=== PATIENT | male | born 1980 | race Caucasian/White ===

== ENCOUNTER 2020-04-20 11:43 | Inpatient (IN) ==
[2020-04-20] MEDS ORDERED: Morphine Sulfate 2 MG/ML SYRINGE IVP ONE (14:01)
[2020-04-20] MEDS ORDERED: Ondansetron 4 MG/2 ML VIAL IVP PRN (14:04)
[2020-04-20] MEDS ORDERED: Naloxone 0.4 MG/ML INJ IVP PRN (14:04)
[2020-04-20] MEDS ORDERED: *HR* OxyCODONE Oral Soln 5 MG/5 ML UD.LIQ GTUBE PRN (14:07)
[2020-04-20] MEDS ORDERED: 0.9 % Sodium Chloride 1,000 ML IVC ONE (14:08)
[2020-04-20 15:15] LABS: Basophils # 0.1 K/mcL (0.0-0.2); Basophils % 0.3 %; Eosinophils # 0.3 K/mcL (0.0-0.6); Eosinophils % 1.7 %; Hematocrit 31.6 % (37.5-50.1); Hemoglobin 9.2 g/dL (12.9-16.9); Immature Granulocytes % 0.3 % (0-4); Lymphocytes # 1.9 K/mcL (0.6-4.6); Lymphocytes % 10.8 %; Mean Corpuscular HGB Conc 29.1 g/dL (31.6-35.5); Mean Corpuscular Hemoglobin 26.4 pg (28.0-33.3); Mean Corpuscular Volume 90.5 fL (83.0-100.0); Monocytes # 1.4 K/mcL (0.0-1.3); Monocytes % 7.8 %; Neutrophils # 13.8 K/mcL (1.6-8.9); Platelet Count 260 K/mcL (140-400); Red Blood Count 3.49 M/mcL (4.19-5.50); Red Cell Distribution Width 15.2 % (11.5-14.5); Segmented Neutrophils % 79.1 %; White Blood Count 17.4 K/mcL (4.3-11.1)
[2020-04-20 15:27] LABS: Bilirubin,Urine Negative (Negative); Blood,Urine Moderate (Negative); Clarity,Urine Turbid (Clear); Color,Urine Light-Yellow (Yellow); Glucose,Urine (UA) Normal (Normal); Ketones,Urine Negative (Negative); Leukocyte Esterase,Urine Large (Negative); Nitrite,Urine Negative (Negative); Protein,Urine 100 mg/dL (Neg-Trace); RBC,Urine TNTC per hpf (0-3); Renal Epithelial Cells,Urine Many per hpf (None-Few); Specific Gravity,Urine 1.013 (1.010-1.025); Squamous Epithelial Cell,Urine Few per hpf (None-Few); Urobilinogen,Urine Normal (Normal); WBC,Urine TNTC per hpf (0-3)
[2020-04-20 15:30] LABS: Calcium 9.2 mg/dL (8.6-10.3); Potassium 5.2 mEq/L (3.5-5.1)
[2020-04-20] MEDS: Morphine Sulfate 2 MG/ML SYRINGE IVP PRN ×2 (17:31→22:18)
[2020-04-20] MEDS: Acetaminophen IV 1,000 MG/100 ML INFUS..BTL IVPB SCH ×2 (18:12→23:59)
[2020-04-21] MEDS: Morphine Sulfate 2 MG/ML SYRINGE IVP PRN ×2 (02:54→07:19)
[2020-04-21] MEDS: Acetaminophen IV 1,000 MG/100 ML INFUS..BTL IVPB SCH (05:55)
[2020-04-21 06:33] LABS: Hematocrit 31.8 % (37.5-50.1); Hemoglobin 9.4 g/dL (12.9-16.9); Mean Corpuscular HGB Conc 29.6 g/dL (31.6-35.5); Mean Corpuscular Hemoglobin 26.9 pg (28.0-33.3); Mean Corpuscular Volume 91.1 fL (83.0-100.0); Mean Platelet Volume 11.9 fL (9.4-12.4); Platelet Count 256 K/mcL (140-400); Red Blood Count 3.49 M/mcL (4.19-5.50); Red Cell Distribution Width 15.3 % (11.5-14.5); White Blood Count 17.6 K/mcL (4.3-11.1)
[2020-04-21 06:45] LABS: INR 1.2; Prothrombin Time 13.7 Seconds (9.4-12.1)
[2020-04-21 06:54] LABS: Calcium 9.3 mg/dL (8.6-10.3); Phosphorous 5.9 mg/dL (2.7-4.5); Potassium 5.6 mEq/L (3.5-5.1)
[2020-04-21] MEDS: cefTRIAXone 1,000 MG in Water for inj. (sterile) 10 ML IVP SCH (07:19)
[2020-04-21] MEDS ORDERED: Lidocaine/EPI 1:100k 1% 50 ML VIAL ONE (07:42)
[2020-04-21] MEDS ORDERED: 0.9 % Sodium Chloride 500 ML ONE ×2 (07:42→07:44)
[2020-04-21] MEDS ORDERED: *HR* Dextrose 25% in Water (Syg) 10 ML SYRINGE IVP ONE (07:51)
[2020-04-21] MEDS ORDERED: *HR* Dextrose 50 % in Water (Vial) 50 ML VIAL IVP ONE (08:01)
[2020-04-21] MEDS ORDERED: *HR* FentaNYL (PF) 100 MCG/2 ML VIAL IVP ONE (08:12)
[2020-04-21] MEDS ORDERED: *HR* Midazolam HCl 2 MG/2 ML VIAL IVP ONE (08:12)
[2020-04-21] MEDS ORDERED: Ampicillin/Sulbactam 1,500 MG in 0.9 % Sodium Chloride Mini Bag 100 ML IVPB ONE (08:13)
[2020-04-21] MEDS ORDERED: *HR* Midazolam HCl 2 MG/2 ML VIAL ONE (08:19)
[2020-04-21] MEDS ORDERED: *HR* FentaNYL (PF) 100 MCG/2 ML VIAL ONE (08:19)
[2020-04-21] MEDS ORDERED: Isovue-300 50ML VIAL IVP ONE (08:48)
[2020-04-21] MEDS ORDERED: 0.9 % Sodium Chloride 1,000 ML IVC SCH (09:30)
[2020-04-21] MEDS: Nystatin SUSP 5 ML UD.LIQ PO SCH ×4 (10:09→20:44)
[2020-04-21] MEDS ORDERED: CEFDINIR GTUBE SCH (12:30)
[2020-04-21] MEDS: Chlorhexidine Rinse 15 ML MOUTHWASH PO SCH ×2 (13:30→20:44)
[2020-04-21] MEDS: *HR* OxyCODONE Oral Soln 5 MG/5 ML UD.LIQ GTUBE PRN ×4 (13:42→22:46)
[2020-04-21] MEDS: Fluticasone Propionate Nasal 50 MCG/SPRAY BOTTLE NS SCH (13:44)
[2020-04-21 14:26] LABS: Adenovirus Not Detected (Not Detect); Bordetella Pertussis Not Detected (Not Detect); Chlamydophila pneumoniae Not Detected (Not Detect); Coronavirus 229E Not Detected (Not Detect); Coronavirus HKU1 Not Detected (Not Detect); Coronavirus NL63 Not Detected (Not Detect); Coronavirus OC43 Not Detected (Not Detect); Human Metapneumovirus Not Detected (Not Detect); Human Rhinovirus/Enterovirus Not Detected (Not Detect); Influenza A Subtype 2009 H1 Not Detected (Not Detect); Influenza B Not Detected (Not Detect); Mycoplasma pneumoniae Not Detected (Not Detect); Parainfluenza Virus 1 Not Detected (Not Detect); Parainfluenza Virus 2 Not Detected (Not Detect); Parainfluenza Virus 3 Not Detected (Not Detect); Parainfluenza Virus 4 Not Detected (Not Detect); Respiratory Syncytial Virus Not Detected (Not Detect)
[2020-04-21] MEDS ORDERED: Albuterol 2.5 MG/3 ML NEBULIZER IH PRN (15:49)
[2020-04-21 16:50] LABS: Calcium 9.4 mg/dL (8.6-10.3); Potassium 4.3 mEq/L (3.5-5.1)
[2020-04-21] MEDS: traZODone 50 MG TABLET GTUBE SCH (20:43)
[2020-04-21] MEDS: GuaiFENesin Liq 200 MG/10 ML UDC GTUBE PRN (20:44)
[2020-04-22] MEDS: *HR* OxyCODONE Oral Soln 5 MG/5 ML UD.LIQ GTUBE PRN ×5 (03:31→22:05)
[2020-04-22 07:14] LABS: Basophils # 0.1 K/mcL (0.0-0.2); Basophils % 0.4 %; Eosinophils # 0.1 K/mcL (0.0-0.6); Eosinophils % 0.6 %; Hemoglobin 10.3 g/dL (12.9-16.9); Immature Granulocytes % 0.3 % (0-4); Lymphocytes # 1.7 K/mcL (0.6-4.6); Lymphocytes % 12.9 %; Mean Corpuscular HGB Conc 29.4 g/dL (31.6-35.5); Mean Corpuscular Hemoglobin 26.8 pg (28.0-33.3); Mean Corpuscular Volume 91.1 fL (83.0-100.0); Mean Platelet Volume 12.2 fL (9.4-12.4); Monocytes # 0.9 K/mcL (0.0-1.3); Monocytes % 6.6 %; Neutrophils # 10.4 K/mcL (1.6-8.9); Platelet Count 274 K/mcL (140-400); Red Blood Count 3.84 M/mcL (4.19-5.50); Red Cell Distribution Width 15.5 % (11.5-14.5); Segmented Neutrophils % 79.2 %; White Blood Count 13.1 K/mcL (4.3-11.1)
[2020-04-22] MEDS ORDERED: D5% in Water 1,000 ML IVC SCH ×2 (09:00→15:38)
[2020-04-22] MEDS: Nystatin SUSP 5 ML UD.LIQ PO SCH ×4 (09:28→22:06)
[2020-04-22] MEDS: Chlorhexidine Rinse 15 ML MOUTHWASH PO SCH ×2 (09:28→22:05)
[2020-04-22] MEDS: polyethylene glycoL 3350 17 GM POWD.PACK GTUBE SCH (09:28)
[2020-04-22] MEDS: GuaiFENesin Liq 200 MG/10 ML UDC GTUBE PRN ×3 (09:28→22:24)
[2020-04-22] MEDS: cefTRIAXone 1,000 MG in Water for inj. (sterile) 10 ML IVP SCH (09:29)
[2020-04-22] MEDS: Fluticasone Propionate Nasal 50 MCG/SPRAY BOTTLE NS SCH (09:33)
[2020-04-22 09:46] LABS: Calcium 10.2 mg/dL (8.6-10.3); Potassium 4.2 mEq/L (3.5-5.1)
[2020-04-22] MEDS: FluocinoLONE Acet 0.025% CRM 15 GM TUBE TP SCH (12:29)
[2020-04-22] MEDS: Metoclopramide 10 MG/10 ML UD.LIQ GTUBE SCH (16:15)
[2020-04-22] MEDS: traZODone 50 MG TABLET GTUBE SCH (22:06)
[2020-04-23] MEDS: Metoclopramide 10 MG/10 ML UD.LIQ GTUBE SCH ×5 (00:35→23:25)
[2020-04-23 04:16] LABS: Basophils # 0.1 K/mcL (0.0-0.2); Basophils % 0.4 %; Eosinophils # 0.5 K/mcL (0.0-0.6); Eosinophils % 2.6 %; Hematocrit 32.7 % (37.5-50.1); Hemoglobin 9.8 g/dL (12.9-16.9); Immature Granulocytes % 0.3 % (0-4); Lymphocytes # 2.9 K/mcL (0.6-4.6); Lymphocytes % 15.6 %; Mean Corpuscular Hemoglobin 26.3 pg (28.0-33.3); Mean Corpuscular Volume 87.9 fL (83.0-100.0); Monocytes # 1.5 K/mcL (0.0-1.3); Neutrophils # 13.8 K/mcL (1.6-8.9); Platelet Count 246 K/mcL (140-400); Red Blood Count 3.72 M/mcL (4.19-5.50); Red Cell Distribution Width 15.2 % (11.5-14.5); Segmented Neutrophils % 73.1 %; White Blood Count 18.8 K/mcL (4.3-11.1)
[2020-04-23 04:30] LABS: BUN/Creatinine Ratio 34 (6-26); Blood Urea Nitrogen 32 mg/dL (6-20); Calcium 8.9 mg/dL (8.6-10.3); Carbon Dioxide 28 mEq/L (23-29); Chloride 109 mEq/L (98-107); Glucose 112 mg/dL (70-105); Osmolality,Calculated 312 (280-300); Potassium 3.2 mEq/L (3.5-5.1); Sodium 147 mEq/L (136-145); eGFR For African Americans > 60 (> 60); eGFR For Non-African Americans > 60 (> 60)
[2020-04-23] MEDS: GuaiFENesin Liq 200 MG/10 ML UDC GTUBE PRN (06:05)
[2020-04-23] MEDS: 0.9 % Sodium Chloride 1,000 ML IVC SCH ×2 (06:06→18:28)
[2020-04-23] MEDS: cefTRIAXone 2,000 MG in Water for inj. (sterile) 20 ML IVP SCH (09:05)
[2020-04-23] MEDS: Chlorhexidine Rinse 15 ML MOUTHWASH PO SCH ×2 (09:08→22:19)
[2020-04-23] MEDS: Potassium Chloride Elixir 20 MEQ/15 ML UDC GTUBE SCH ×2 (09:08→22:21)
[2020-04-23] MEDS: polyethylene glycoL 3350 17 GM POWD.PACK GTUBE SCH (09:09)
[2020-04-23] MEDS: Fluticasone Propionate Nasal 50 MCG/SPRAY BOTTLE NS SCH (09:10)
[2020-04-23] MEDS: FluocinoLONE Acet 0.025% CRM 15 GM TUBE TP SCH (09:11)
[2020-04-23] MEDS: Nystatin SUSP 5 ML UD.LIQ PO SCH ×4 (09:12→22:19)
[2020-04-23] MEDS: traZODone 50 MG TABLET GTUBE SCH (22:20)
[2020-04-24 02:44] LABS: Bacteria,Urine Few per hpf (None-Few); Bilirubin,Urine Negative (Negative); Blood,Urine Large (Negative); Clarity,Urine Turbid (Clear); Color,Urine Colorless (Yellow); Glucose,Urine (UA) Normal (Normal); Ketones,Urine Negative (Negative); Leukocyte Esterase,Urine Moderate (Negative); Mucus,Urine Few per lpf (None-Few); Nitrite,Urine Negative (Negative); Protein,Urine 50 mg/dL (Neg-Trace); RBC,Urine TNTC per hpf (0-3); Specific Gravity,Urine 1.009 (1.010-1.025); Urobilinogen,Urine Normal (Normal); WBC,Urine 50-100 per hpf (0-3)
[2020-04-24] MEDS: Metoclopramide 10 MG/10 ML UD.LIQ GTUBE SCH ×2 (05:38→17:01)
[2020-04-24 08:03] LABS: Basophils % 0.3 %; Eosinophils # 0.6 K/mcL (0.0-0.6); Eosinophils % 4.1 %; Hemoglobin 8.5 g/dL (12.9-16.9); Immature Granulocytes % 0.4 % (0-4); Lymphocytes % 21.4 %; Mean Corpuscular HGB Conc 30.4 g/dL (31.6-35.5); Mean Corpuscular Hemoglobin 26.6 pg (28.0-33.3); Mean Corpuscular Volume 87.8 fL (83.0-100.0); Mean Platelet Volume 12.9 fL (9.4-12.4); Neutrophils # 9.3 K/mcL (1.6-8.9); Platelet Count 210 K/mcL (140-400); Red Blood Count 3.19 M/mcL (4.19-5.50); Red Cell Distribution Width 14.8 % (11.5-14.5); Segmented Neutrophils % 66.8 %; White Blood Count 13.9 K/mcL (4.3-11.1)
[2020-04-24] MEDS: 0.9 % Sodium Chloride 1,000 ML IVC SCH (08:08)
[2020-04-24] MEDS: cefTRIAXone 2,000 MG in Water for inj. (sterile) 20 ML IVP SCH (08:08)
[2020-04-24] MEDS: Nystatin SUSP 5 ML UD.LIQ PO SCH ×4 (08:09→20:17)
[2020-04-24] MEDS: Chlorhexidine Rinse 15 ML MOUTHWASH PO SCH ×2 (08:09→20:16)
[2020-04-24] MEDS: polyethylene glycoL 3350 17 GM POWD.PACK GTUBE SCH (08:10)
[2020-04-24] MEDS: Potassium Chloride Elixir 20 MEQ/15 ML UDC GTUBE SCH (08:10)
[2020-04-24] MEDS: Fluticasone Propionate Nasal 50 MCG/SPRAY BOTTLE NS SCH (08:11)
[2020-04-24 08:15] LABS: BUN/Creatinine Ratio 35 (6-26); Blood Urea Nitrogen 22 mg/dL (6-20); Calcium 8.5 mg/dL (8.6-10.3); Carbon Dioxide 23 mEq/L (23-29); Chloride 115 mEq/L (98-107); Glucose 80 mg/dL (70-105); Osmolality,Calculated 304 (280-300); Potassium 4.5 mEq/L (3.5-5.1); Sodium 146 mEq/L (136-145); eGFR For African Americans > 60 (> 60); eGFR For Non-African Americans > 60 (> 60)
[2020-04-24] MEDS: FluocinoLONE Acet 0.025% CRM 15 GM TUBE TP SCH (08:28)
[2020-04-24] MEDS ORDERED: *HR* Midazolam HCl 2 MG/2 ML VIAL ONE (10:24)
[2020-04-24] MEDS ORDERED: *HR* FentaNYL (PF) 100 MCG/2 ML VIAL ONE (10:24)
[2020-04-24] MEDS ORDERED: *HR* Propofol 200 MG/20 ML VIAL IVP ONE (10:24)
[2020-04-24] MEDS ORDERED: Ondansetron 4 MG/2 ML VIAL ONE (10:25)
[2020-04-24] MEDS ORDERED: Lidocaine -MPF 2% 2 ML VIAL ONE (10:25)
[2020-04-24] MEDS ORDERED: Lidocaine -MPF 4% 5 ML AMPUL ONE (10:48)
[2020-04-24] MEDS ORDERED: Ondansetron 4 MG/2 ML VIAL IVP PRN ×3 (10:52→12:24)
[2020-04-24] MEDS ORDERED: *HR* HYDROmorphone (PF) 1 MG/ML SYRINGE IVP PRN ×2 (10:52→12:24)
[2020-04-24] MEDS ORDERED: *HR* Rocuronium Bromide 50 MG/5 ML VIAL ONE (10:52)
[2020-04-24] MEDS ORDERED: *HR* Promethazine 25 MG/ML VIAL IVP PRN ×2 (10:52→12:24)
[2020-04-24] MEDS ORDERED: *HR* PHENYLEPHRINE 1,000 MCG/10 ML SYRINGE IVP ONE (11:10)
[2020-04-24] MEDS ORDERED: Clotrimazole 1% CRM 15 GM TUBE TP PRN (12:24)
[2020-04-24] MEDS ORDERED: Naloxone 0.4 MG/ML INJ IVP PRN (12:24)
[2020-04-24] MEDS ORDERED: Promethazine Syrup 6.25 MG/5 ML GTUBE PRN (12:24)
[2020-04-24] MEDS ORDERED: Albuterol 2.5 MG/3 ML NEBULIZER IH PRN (12:24)
[2020-04-24] MEDS: Baclofen 10 MG TABLET GTUBE SCH ×2 (14:52→20:16)
[2020-04-24] MEDS: GuaiFENesin Liq 200 MG/10 ML UDC GTUBE PRN ×2 (17:01→21:11)
[2020-04-24] MEDS: traZODone 50 MG TABLET GTUBE SCH (20:16)
[2020-04-24] MEDS ORDERED: Potassium Chloride Elixir 20 MEQ/15 ML UDC GTUBE SCH (21:00)
[2020-04-25] MEDS: GuaiFENesin Liq 200 MG/10 ML UDC GTUBE PRN ×4 (00:27→21:53)
[2020-04-25] MEDS: Metoclopramide 10 MG/10 ML UD.LIQ GTUBE SCH ×4 (00:27→18:33)
[2020-04-25] MEDS: *HR* OxyCODONE Oral Soln 5 MG/5 ML UD.LIQ GTUBE PRN ×3 (02:44→15:36)
[2020-04-25 09:02] LABS: Basophils % 0.1 %; Eosinophils # 0.1 K/mcL (0.0-0.6); Eosinophils % 0.4 %; Hematocrit 27.4 % (37.5-50.1); Hemoglobin 8.3 g/dL (12.9-16.9); Immature Granulocytes % 0.3 % (0-4); Lymphocytes # 2.2 K/mcL (0.6-4.6); Lymphocytes % 12.9 %; Mean Corpuscular HGB Conc 30.3 g/dL (31.6-35.5); Mean Corpuscular Hemoglobin 27.1 pg (28.0-33.3); Mean Corpuscular Volume 89.5 fL (83.0-100.0); Mean Platelet Volume 12.4 fL (9.4-12.4); Monocytes # 0.9 K/mcL (0.0-1.3); Monocytes % 5.3 %; Neutrophils # 13.9 K/mcL (1.6-8.9); Platelet Count 250 K/mcL (140-400); Red Blood Count 3.06 M/mcL (4.19-5.50); Red Cell Distribution Width 14.5 % (11.5-14.5); White Blood Count 17.1 K/mcL (4.3-11.1)
[2020-04-25] MEDS: Baclofen 10 MG TABLET GTUBE SCH ×3 (09:29→21:54)
[2020-04-25] MEDS: Cholecalciferol (D-3) 1,000 UNIT (25MCG) TABLET PO SCH (09:30)
[2020-04-25] MEDS: Nystatin SUSP 5 ML UD.LIQ PO SCH ×4 (09:30→21:52)
[2020-04-25] MEDS: polyethylene glycoL 3350 17 GM POWD.PACK GTUBE SCH (09:31)
[2020-04-25] MEDS: Chlorhexidine Rinse 15 ML MOUTHWASH PO SCH ×2 (09:31→21:55)
[2020-04-25] MEDS: cefTRIAXone 2,000 MG in Water for inj. (sterile) 20 ML IVP SCH (09:31)
[2020-04-25] MEDS: Fluticasone Propionate Nasal 50 MCG/SPRAY BOTTLE NS SCH (09:32)
[2020-04-25] MEDS: FluocinoLONE Acet 0.025% CRM 15 GM TUBE TP SCH (09:33)
[2020-04-25 09:36] LABS: BUN/Creatinine Ratio 32 (6-26); Blood Urea Nitrogen 17 mg/dL (6-20); Calcium 8.4 mg/dL (8.6-10.3); Carbon Dioxide 23 mEq/L (23-29); Chloride 108 mEq/L (98-107); Glucose 100 mg/dL (70-105); Osmolality,Calculated 290 (280-300); Potassium 3.1 mEq/L (3.5-5.1); Sodium 139 mEq/L (136-145); eGFR For African Americans > 60 (> 60); eGFR For Non-African Americans > 60 (> 60)
[2020-04-25] MEDS: Potassium Chloride Elixir 20 MEQ/15 ML UDC GTUBE SCH ×2 (14:17→21:53)
[2020-04-25] MEDS: traZODone 50 MG TABLET GTUBE SCH (21:56)
[2020-04-26] MEDS: Metoclopramide 10 MG/10 ML UD.LIQ GTUBE SCH ×4 (01:17→18:24)
[2020-04-26] MEDS ORDERED: Levalbuterol Neb 0.63 MG/3 ML IH PRN ×2 (01:24→02:14)
[2020-04-26] MEDS ORDERED: Levalbuterol Neb 1.25 MG/3 ML IH ONE (03:49)
[2020-04-26 05:21] LABS: Basophils % 0.2 %; Eosinophils # 0.4 K/mcL (0.0-0.6); Eosinophils % 2.6 %; Hematocrit 27.5 % (37.5-50.1); Hemoglobin 8.1 g/dL (12.9-16.9); Immature Granulocytes % 0.3 % (0-4); Lymphocytes # 2.3 K/mcL (0.6-4.6); Lymphocytes % 15.8 %; Mean Corpuscular HGB Conc 29.5 g/dL (31.6-35.5); Mean Corpuscular Hemoglobin 26.4 pg (28.0-33.3); Mean Corpuscular Volume 89.6 fL (83.0-100.0); Mean Platelet Volume 11.6 fL (9.4-12.4); Monocytes # 0.8 K/mcL (0.0-1.3); Monocytes % 5.3 %; Neutrophils # 11.1 K/mcL (1.6-8.9); Platelet Count 271 K/mcL (140-400); Red Blood Count 3.07 M/mcL (4.19-5.50); Red Cell Distribution Width 14.7 % (11.5-14.5); Segmented Neutrophils % 75.8 %; White Blood Count 14.6 K/mcL (4.3-11.1)
[2020-04-26 05:55] LABS: BUN/Creatinine Ratio 35 (6-26); Blood Urea Nitrogen 18 mg/dL (6-20); Calcium 8.5 mg/dL (8.6-10.3); Carbon Dioxide 24 mEq/L (23-29); Chloride 112 mEq/L (98-107); Glucose 124 mg/dL (70-105); Osmolality,Calculated 297 (280-300); Potassium 4.7 mEq/L (3.5-5.1); Sodium 142 mEq/L (136-145); eGFR For African Americans > 60 (> 60); eGFR For Non-African Americans > 60 (> 60)
[2020-04-26] MEDS: Chlorhexidine Rinse 15 ML MOUTHWASH PO SCH ×2 (09:14→20:17)
[2020-04-26] MEDS: cefTRIAXone 2,000 MG in Water for inj. (sterile) 20 ML IVP SCH (09:14)
[2020-04-26] MEDS: Potassium Chloride Elixir 20 MEQ/15 ML UDC GTUBE SCH ×2 (09:14→20:17)
[2020-04-26] MEDS: Cholecalciferol (D-3) 1,000 UNIT (25MCG) TABLET PO SCH (09:15)
[2020-04-26] MEDS: Baclofen 10 MG TABLET GTUBE SCH ×3 (09:15→20:17)
[2020-04-26] MEDS: GuaiFENesin Liq 200 MG/10 ML UDC GTUBE PRN ×3 (09:15→18:24)
[2020-04-26] MEDS: Nystatin SUSP 5 ML UD.LIQ PO SCH ×4 (09:15→20:16)
[2020-04-26] MEDS: polyethylene glycoL 3350 17 GM POWD.PACK GTUBE SCH (09:16)
[2020-04-26] MEDS: Fluticasone Propionate Nasal 50 MCG/SPRAY BOTTLE NS SCH (09:19)
[2020-04-26] MEDS: FluocinoLONE Acet 0.025% CRM 15 GM TUBE TP SCH (09:20)
[2020-04-26] MEDS ORDERED: NON-FORMULARY MEDICATION 1 EACH EACH (Cholecalciferol (Vitamin D3) [Vitamin D3] 50,000 UNI GTUBE SCH (12:03)
[2020-04-26] MEDS: *HR* OxyCODONE Oral Soln 5 MG/5 ML UD.LIQ GTUBE PRN (20:16)
[2020-04-26] MEDS: traZODone 50 MG TABLET GTUBE SCH (20:17)
[2020-04-27] MEDS: Metoclopramide 10 MG/10 ML UD.LIQ GTUBE SCH ×4 (00:04→16:20)
[2020-04-27] MEDS: GuaiFENesin Liq 200 MG/10 ML UDC GTUBE PRN ×2 (00:04→05:38)
[2020-04-27 03:18] LABS: Basophils # 0.1 K/mcL (0.0-0.2); Basophils % 0.3 %; Eosinophils # 0.3 K/mcL (0.0-0.6); Eosinophils % 1.6 %; Hematocrit 27.9 % (37.5-50.1); Hemoglobin 8.6 g/dL (12.9-16.9); Immature Granulocytes % 0.8 % (0-4); Lymphocytes # 3.1 K/mcL (0.6-4.6); Lymphocytes % 15.3 %; Mean Corpuscular HGB Conc 30.8 g/dL (31.6-35.5); Mean Corpuscular Hemoglobin 26.5 pg (28.0-33.3); Mean Corpuscular Volume 86.1 fL (83.0-100.0); Mean Platelet Volume 11.9 fL (9.4-12.4); Monocytes % 5.2 %; Neutrophils # 15.4 K/mcL (1.6-8.9); Platelet Count 307 K/mcL (140-400); Red Blood Count 3.24 M/mcL (4.19-5.50); Red Cell Distribution Width 15.2 % (11.5-14.5); Segmented Neutrophils % 76.8 %; White Blood Count 20.1 K/mcL (4.3-11.1)
[2020-04-27 03:28] LABS: BUN/Creatinine Ratio 40 (6-26); Blood Urea Nitrogen 19 mg/dL (6-20); Calcium 8.9 mg/dL (8.6-10.3); Carbon Dioxide 24 mEq/L (23-29); Chloride 110 mEq/L (98-107); Glucose 100 mg/dL (70-105); Osmolality,Calculated 298 (280-300); Potassium 4.8 mEq/L (3.5-5.1); Sodium 143 mEq/L (136-145); eGFR For African Americans > 60 (> 60); eGFR For Non-African Americans > 60 (> 60)
[2020-04-27] MEDS ORDERED: *HR* LORazepam 2 MG/ML VIAL IVP ONE (03:54)
[2020-04-27] MEDS: Cholecalciferol (D-3) 1,000 UNIT (25MCG) TABLET PO SCH (09:45)
[2020-04-27] MEDS: Nystatin SUSP 5 ML UD.LIQ PO SCH ×4 (09:45→20:41)
[2020-04-27] MEDS: Baclofen 10 MG TABLET GTUBE SCH ×3 (09:45→20:41)
[2020-04-27] MEDS: Potassium Chloride Elixir 20 MEQ/15 ML UDC GTUBE SCH ×2 (09:45→20:41)
[2020-04-27] MEDS: cefTRIAXone 2,000 MG in Water for inj. (sterile) 20 ML IVP SCH (09:46)
[2020-04-27] MEDS: Chlorhexidine Rinse 15 ML MOUTHWASH PO SCH ×2 (09:46→20:41)
[2020-04-27] MEDS: polyethylene glycoL 3350 17 GM POWD.PACK GTUBE SCH (09:46)
[2020-04-27] MEDS: *HR* OxyCODONE Oral Soln 5 MG/5 ML UD.LIQ GTUBE PRN (10:51)
[2020-04-27] MEDS: FluocinoLONE Acet 0.025% CRM 15 GM TUBE TP SCH (10:55)
[2020-04-27] MEDS: Fluticasone Propionate Nasal 50 MCG/SPRAY BOTTLE NS SCH (10:55)
[2020-04-27] MEDS: Piperacillin/Tazobactam 3.375 GM in 0.9 % Sodium Chloride Mini Bag 100 ML IVPB SCH ×2 (12:23→16:20)
[2020-04-27] MEDS: traZODone 50 MG TABLET GTUBE SCH (20:41)
[2020-04-28] MEDS: Metoclopramide 10 MG/10 ML UD.LIQ GTUBE SCH ×4 (00:07→17:17)
[2020-04-28] MEDS: GuaiFENesin Liq 200 MG/10 ML UDC GTUBE PRN ×2 (00:35→18:51)
[2020-04-28] MEDS: *HR* OxyCODONE Oral Soln 5 MG/5 ML UD.LIQ GTUBE PRN ×3 (01:01→19:01)
[2020-04-28] MEDS: Piperacillin/Tazobactam 3.375 GM in 0.9 % Sodium Chloride Mini Bag 100 ML IVPB SCH ×3 (02:34→18:51)
[2020-04-28 05:40] LABS: Basophils # 0.1 K/mcL (0.0-0.2); Basophils % 0.3 %; Eosinophils # 0.4 K/mcL (0.0-0.6); Eosinophils % 2.4 %; Hematocrit 28.6 % (37.5-50.1); Hemoglobin 8.5 g/dL (12.9-16.9); Immature Granulocytes % 0.3 % (0-4); Lymphocytes # 2.1 K/mcL (0.6-4.6); Lymphocytes % 12.3 %; Mean Corpuscular HGB Conc 29.7 g/dL (31.6-35.5); Mean Corpuscular Hemoglobin 26.2 pg (28.0-33.3); Mean Corpuscular Volume 88.3 fL (83.0-100.0); Mean Platelet Volume 11.9 fL (9.4-12.4); Monocytes # 0.9 K/mcL (0.0-1.3); Monocytes % 5.3 %; Neutrophils # 13.6 K/mcL (1.6-8.9); Platelet Count 325 K/mcL (140-400); Red Blood Count 3.24 M/mcL (4.19-5.50); Red Cell Distribution Width 15.5 % (11.5-14.5); Segmented Neutrophils % 79.4 %; White Blood Count 17.2 K/mcL (4.3-11.1)
[2020-04-28 06:00] LABS: BUN/Creatinine Ratio 37 (6-26); Blood Urea Nitrogen 23 mg/dL (6-20); Calcium 9.2 mg/dL (8.6-10.3); Carbon Dioxide 28 mEq/L (23-29); Chloride 102 mEq/L (98-107); Glucose 108 mg/dL (70-105); Osmolality,Calculated 288 (280-300); Potassium 4.4 mEq/L (3.5-5.1); Sodium 137 mEq/L (136-145); eGFR For African Americans > 60 (> 60); eGFR For Non-African Americans > 60 (> 60)
[2020-04-28] MEDS: FluocinoLONE Acet 0.025% CRM 15 GM TUBE TP SCH (09:16)
[2020-04-28] MEDS: polyethylene glycoL 3350 17 GM POWD.PACK GTUBE SCH (09:17)
[2020-04-28] MEDS: Chlorhexidine Rinse 15 ML MOUTHWASH PO SCH ×2 (09:17→20:05)
[2020-04-28] MEDS: Fluticasone Propionate Nasal 50 MCG/SPRAY BOTTLE NS SCH (09:17)
[2020-04-28] MEDS: Nystatin SUSP 5 ML UD.LIQ PO SCH ×4 (09:17→20:05)
[2020-04-28] MEDS: Cholecalciferol (D-3) 1,000 UNIT (25MCG) TABLET PO SCH (09:17)
[2020-04-28] MEDS: Baclofen 10 MG TABLET GTUBE SCH ×3 (09:17→20:05)
[2020-04-28] MEDS: Potassium Chloride Elixir 20 MEQ/15 ML UDC GTUBE SCH ×2 (09:17→20:05)
[2020-04-28] MEDS: traZODone 50 MG TABLET GTUBE SCH (20:05)
[2020-04-29] MEDS: Metoclopramide 10 MG/10 ML UD.LIQ GTUBE SCH ×4 (00:23→17:00)
[2020-04-29] MEDS: Piperacillin/Tazobactam 3.375 GM in 0.9 % Sodium Chloride Mini Bag 100 ML IVPB SCH ×3 (03:44→18:36)
[2020-04-29 05:38] LABS: Basophils % 0.4 %; Hematocrit 27.9 % (37.5-50.1); Red Cell Distribution Width 15.9 % (11.5-14.5)
[2020-04-29 05:39] LABS: Basophils # 0.1 K/mcL (0.0-0.2); Eosinophils # 0.4 K/mcL (0.0-0.6); Eosinophils % 2.8 %; Hemoglobin 8.6 g/dL (12.9-16.9); Immature Granulocytes % 0.2 % (0-4); Lymphocytes % 15.3 %; Mean Corpuscular HGB Conc 30.8 g/dL (31.6-35.5); Mean Corpuscular Hemoglobin 27.4 pg (28.0-33.3); Mean Corpuscular Volume 88.9 fL (83.0-100.0); Monocytes % 7.3 %; Neutrophils # 10.4 K/mcL (1.6-8.9); Platelet Count 288 K/mcL (140-400); Red Blood Count 3.14 M/mcL (4.19-5.50)
[2020-04-29 06:01] LABS: BUN/Creatinine Ratio 36 (6-26); Blood Urea Nitrogen 17 mg/dL (6-20); Calcium 9.4 mg/dL (8.6-10.3); Carbon Dioxide 27 mEq/L (23-29); Chloride 102 mEq/L (98-107); Glucose 106 mg/dL (70-105); Osmolality,Calculated 286 (280-300); Potassium 3.8 mEq/L (3.5-5.1); Sodium 137 mEq/L (136-145); eGFR For African Americans > 60 (> 60); eGFR For Non-African Americans > 60 (> 60)
[2020-04-29 06:05] LABS: Lymphocytes # 2.1 K/mcL (0.6-4.6); Platelet Estimate Normal (Normal)
[2020-04-29] MEDS: Baclofen 10 MG TABLET GTUBE SCH ×3 (09:27→19:51)
[2020-04-29] MEDS: Nystatin SUSP 5 ML UD.LIQ PO SCH ×4 (09:27→19:51)
[2020-04-29] MEDS: Cholecalciferol (D-3) 1,000 UNIT (25MCG) TABLET PO SCH (09:27)
[2020-04-29] MEDS: Potassium Chloride Elixir 20 MEQ/15 ML UDC GTUBE SCH ×2 (09:28→19:51)
[2020-04-29] MEDS: polyethylene glycoL 3350 17 GM POWD.PACK GTUBE SCH (09:28)
[2020-04-29] MEDS: Chlorhexidine Rinse 15 ML MOUTHWASH PO SCH ×2 (09:28→19:51)
[2020-04-29] MEDS: Fluticasone Propionate Nasal 50 MCG/SPRAY BOTTLE NS SCH (09:28)
[2020-04-29] MEDS: FluocinoLONE Acet 0.025% CRM 15 GM TUBE TP SCH (09:29)
[2020-04-29] MEDS: Levalbuterol Neb 1.25 MG/3 ML IH PRN (11:45)
[2020-04-29] MEDS: GuaiFENesin Liq 200 MG/10 ML UDC GTUBE PRN (13:41)
[2020-04-29] MEDS: *HR* OxyCODONE Oral Soln 5 MG/5 ML UD.LIQ GTUBE PRN (15:19)
[2020-04-29] MEDS: traZODone 50 MG TABLET GTUBE SCH (19:51)
[2020-04-30] MEDS: Metoclopramide 10 MG/10 ML UD.LIQ GTUBE SCH ×4 (00:07→18:09)
[2020-04-30] MEDS: GuaiFENesin Liq 200 MG/10 ML UDC GTUBE PRN ×2 (00:47→19:57)
[2020-04-30] MEDS: Piperacillin/Tazobactam 3.375 GM in 0.9 % Sodium Chloride Mini Bag 100 ML IVPB SCH ×3 (03:23→18:10)
[2020-04-30] MEDS: Baclofen 10 MG TABLET GTUBE SCH ×3 (08:36→21:10)
[2020-04-30] MEDS: Cholecalciferol (D-3) 1,000 UNIT (25MCG) TABLET PO SCH (08:36)
[2020-04-30] MEDS: Potassium Chloride Elixir 20 MEQ/15 ML UDC GTUBE SCH ×2 (08:36→21:10)
[2020-04-30] MEDS: Nystatin SUSP 5 ML UD.LIQ PO SCH ×4 (08:36→21:10)
[2020-04-30] MEDS: Chlorhexidine Rinse 15 ML MOUTHWASH PO SCH ×2 (08:36→21:10)
[2020-04-30] MEDS: FluocinoLONE Acet 0.025% CRM 15 GM TUBE TP SCH (08:37)
[2020-04-30] MEDS: Fluticasone Propionate Nasal 50 MCG/SPRAY BOTTLE NS SCH (08:37)
[2020-04-30] MEDS: polyethylene glycoL 3350 17 GM POWD.PACK GTUBE SCH (08:38)
[2020-04-30] MEDS: *HR* OxyCODONE Oral Soln 5 MG/5 ML UD.LIQ GTUBE PRN ×2 (10:31→18:09)
[2020-04-30] MEDS: Levalbuterol Neb 1.25 MG/3 ML IH PRN (19:19)
[2020-05-01] MEDS: Metoclopramide 10 MG/10 ML UD.LIQ GTUBE SCH ×4 (00:21→18:09)
[2020-05-01] MEDS: Piperacillin/Tazobactam 3.375 GM in 0.9 % Sodium Chloride Mini Bag 100 ML IVPB SCH ×2 (03:36→12:51)
[2020-05-01 06:25] LABS: Basophils # 0.1 K/mcL (0.0-0.2); Basophils % 0.4 %; Eosinophils # 0.3 K/mcL (0.0-0.6); Eosinophils % 2.2 %; Hematocrit 27.9 % (37.5-50.1); Hemoglobin 8.4 g/dL (12.9-16.9); Immature Granulocytes % 0.4 % (0-4); Lymphocytes # 2.2 K/mcL (0.6-4.6); Mean Corpuscular HGB Conc 30.1 g/dL (31.6-35.5); Mean Corpuscular Volume 89.7 fL (83.0-100.0); Mean Platelet Volume 11.5 fL (9.4-12.4); Monocytes # 1.3 K/mcL (0.0-1.3); Monocytes % 9.4 %; Neutrophils # 9.7 K/mcL (1.6-8.9); Platelet Count 341 K/mcL (140-400); Red Blood Count 3.11 M/mcL (4.19-5.50); Segmented Neutrophils % 71.6 %; White Blood Count 13.6 K/mcL (4.3-11.1)
[2020-05-01 06:47] LABS: BUN/Creatinine Ratio 38 (6-26); Blood Urea Nitrogen 18 mg/dL (6-20); Calcium 9.2 mg/dL (8.6-10.3); Carbon Dioxide 26 mEq/L (23-29); Chloride 104 mEq/L (98-107); Glucose 89 mg/dL (70-105); Osmolality,Calculated 285 (280-300); Potassium 4.1 mEq/L (3.5-5.1); Sodium 137 mEq/L (136-145); eGFR For African Americans > 60 (> 60); eGFR For Non-African Americans > 60 (> 60)
[2020-05-01] MEDS: traZODone 50 MG TABLET GTUBE SCH ×2 (07:45→20:44)
[2020-05-01] MEDS: polyethylene glycoL 3350 17 GM POWD.PACK GTUBE SCH (09:17)
[2020-05-01] MEDS: Nystatin SUSP 5 ML UD.LIQ PO SCH ×4 (09:17→22:22)
[2020-05-01] MEDS: Potassium Chloride Elixir 20 MEQ/15 ML UDC GTUBE SCH ×2 (09:17→20:43)
[2020-05-01] MEDS: Chlorhexidine Rinse 15 ML MOUTHWASH PO SCH ×2 (09:17→22:21)
[2020-05-01] MEDS: Baclofen 10 MG TABLET GTUBE SCH ×4 (09:17→20:44)
[2020-05-01] MEDS: Fluticasone Propionate Nasal 50 MCG/SPRAY BOTTLE NS SCH (09:18)
[2020-05-01] MEDS: FluocinoLONE Acet 0.025% CRM 15 GM TUBE TP SCH (09:18)
[2020-05-01] MEDS: Cholecalciferol (D-3) 1,000 UNIT (25MCG) TABLET PO SCH (09:19)
[2020-05-01] MEDS: *HR* OxyCODONE Oral Soln 5 MG/5 ML UD.LIQ GTUBE PRN (12:49)
[2020-05-01] MEDS: Amoxicillin/Clavulanate 400 MG/5 ML UDC GTUBE SCH (18:09)
[2020-05-02] MEDS: Metoclopramide 10 MG/10 ML UD.LIQ GTUBE SCH ×2 (00:18→06:00)
[2020-05-02] MEDS: Amoxicillin/Clavulanate 400 MG/5 ML UDC GTUBE SCH (06:00)
[2020-05-02 07:26] VITALS: BP 94/56
[2020-05-02] MEDS: Potassium Chloride Elixir 20 MEQ/15 ML UDC GTUBE SCH (07:45)
[2020-05-02] MEDS: Baclofen 10 MG TABLET GTUBE SCH (07:45)
[2020-05-02] MEDS: Nystatin SUSP 5 ML UD.LIQ PO SCH (07:45)
[2020-05-02] MEDS: Cholecalciferol (D-3) 1,000 UNIT (25MCG) TABLET PO SCH (07:45)
[2020-05-02] MEDS: Chlorhexidine Rinse 15 ML MOUTHWASH PO SCH (07:46)
[2020-05-02] MEDS: polyethylene glycoL 3350 17 GM POWD.PACK GTUBE SCH (07:46)
[2020-05-02] MEDS: FluocinoLONE Acet 0.025% CRM 15 GM TUBE TP SCH (07:46)
[2020-05-02] MEDS: Fluticasone Propionate Nasal 50 MCG/SPRAY BOTTLE NS SCH (07:46)
[2020-05-02 09:18] LABS: BUN/Creatinine Ratio 41 (6-26); Blood Urea Nitrogen 19 mg/dL (6-20); Calcium 9.2 mg/dL (8.6-10.3); Carbon Dioxide 28 mEq/L (23-29); Chloride 104 mEq/L (98-107); Glucose 100 mg/dL (70-105); Magnesium 1.6 mg/dL (1.6-2.6); Osmolality,Calculated 288 (280-300); Phosphorous 2.7 mg/dL (2.7-4.5); Potassium 4.4 mEq/L (3.5-5.1); Sodium 138 mEq/L (136-145); eGFR For African Americans > 60 (> 60); eGFR For Non-African Americans > 60 (> 60)
== END 2020-05-02 10:32 | disposition hospice, inpatient (51) | DRG 853 ==
LOC: 3ANU → OBSVTOIN 13:23 → SUATTDRO 13:23
PROVIDERS: ADMIT Internal Medicine; ATTEND Student in an Organized Health Care Education/Training Program